=== PATIENT | male | born 1985 | race Hispanic/Latino ===

== ENCOUNTER 2023-05-14 17:44 | Emergency (ER) | payer OTHER ==
[~2023-05-14] VITALS: Ht 170.2 cm; Wt 113.4 kg
[2023-05-14 18:16] LABS: BASOPHILS % (AUTO) 0.3 % (0.0-5.0); EOSINOPHILS % (AUTO) 0.8 % (0.0-8.0); HEMATOCRIT 46.6 % (42-54); LYMPHOCYTES % (AUTO) 15.8 % (21.0-51.0); MEAN CORPUSCULAR HEMOGLOBIN 30.5 pg (27.0-33.0); MEAN CORPUSCULAR HGB CONC 34.3 g/dL (32.0-36.0); MEAN CORPUSCULAR VOLUME 88.9 fL (79-99); MONOCYTES % (AUTO) 6.3 % (3.0-13.0); NEUTROPHILS % (AUTO) 76.5 % (40.0-77.0); PLATELET COUNT (AUTO) 331 K/uL (130-400); RED BLOOD CELL COUNT(AUTO) 5.24 MIL/uL (4.50-6.20)
[2023-05-14 18:28] LABS: POTASSIUM 3.7 mmol/L (3.5-5.1)
[2023-05-14 18:38] LABS: ALBUMIN 4.3 g/dL (3.5-5.0); TOTAL PROTEIN, SERUM 8.2 g/dL (6.0-8.3)
[2023-05-14 19:11] LABS: B-TYPE NATRIURETIC PEPTIDE < 5 pg/mL (0-100)
[2023-05-14] MEDS ORDERED: NIFEDIPINE ER 30 MG TAB PO SCH (20:00)
[2023-05-14] MEDS ORDERED: 0.9%NACL 1000ML 1,000 ML IV ONE (20:00)
[2023-05-14] MEDS ORDERED: HYDRALAZINE 20MG/ML VIAL IV ONE (21:00)
[2023-05-14 21:46] VITALS: BP 157/86
[2023-05-14] MEDS ORDERED: LISI10TA24 PO (21:46)
== END 2023-05-14 22:02 | disposition home or self-care (01) ==
LOC: EDH 17:44
DX: I10 Essential (primary) hypertension (principal); J02.9 Acute pharyngitis, unspecified
CPT/HCPCS: 99284; 96374; 96361; 84484; 80053; 83880; 85025; 36415; 93005; J7030; J0360

== ENCOUNTER 2023-05-20 20:39 | Emergency (ER) | payer OTHER ==
[~2023-05-20] VITALS: Ht 172.7 cm; Wt 116.1 kg
[~2023-05-20 20:39] MED LIST: LISI10TA24 PO
[2023-05-20] MEDS ORDERED: 0.9%NACL 1000ML 1,000 ML IV ONE (21:47)
[2023-05-20] MEDS ORDERED: 0.9%NACL 1000ML 1,000 ML IV SCH (22:00)
[2023-05-20 22:09] LABS: BASOPHILS % (AUTO) 0.6 % (0.0-5.0); EOSINOPHILS % (AUTO) 1.6 % (0.0-8.0); HEMATOCRIT 43.1 % (42-54); LYMPHOCYTES % (AUTO) 26.2 % (21.0-51.0); MEAN CORPUSCULAR HEMOGLOBIN 30.9 pg (27.0-33.0); MEAN CORPUSCULAR HGB CONC 33.6 g/dL (32.0-36.0); MEAN CORPUSCULAR VOLUME 91.9 fL (79-99); MONOCYTES % (AUTO) 8.7 % (3.0-13.0); NEUTROPHILS % (AUTO) 62.6 % (40.0-77.0); PLATELET COUNT (AUTO) 329 K/uL (130-400); RED BLOOD CELL COUNT(AUTO) 4.69 MIL/uL (4.50-6.20); RED CELL DISTRIBUTION WIDTH 13.2 % (11.0-15.5); WHITE BLOOD COUNT (AUTO) 9.7 K/uL (4.8-10.8)
[2023-05-20 22:23] LABS: CREATININE 0.8 mg/dL (0.5-1.5); POTASSIUM 3.9 mmol/L (3.5-5.1)
[2023-05-20 22:28] LABS: ALBUMIN 3.5 g/dL (3.5-5.0); TOTAL PROTEIN, SERUM 7.1 g/dL (6.0-8.3)
[2023-05-20] MEDS ORDERED: DEXAMETHASONE SOD PHOSPHATE 4 MG/ML 1ML VIAL IVP ONE (22:30)
[2023-05-20] MEDS ORDERED: FAMOTIDINE 20MG VIAL IV ONE (22:30)
[2023-05-20] MEDS ORDERED: METOCLOPRAMIDE 10 MG/2 ML VIAL IVP ONE (22:30)
[2023-05-20] MEDS ORDERED: KETOROLAC 30MG VIAL (30MG/ML) IVP ONE (22:30)
[2023-05-20] MEDS ORDERED: MORPHINE 4 MG SYG IVP ONE (22:30)
[2023-05-21] MEDS ORDERED: METO-296 PO (00:08)
[2023-05-21] MEDS ORDERED: SUMA25TA25 PO (00:08)
[2023-05-21] MEDS ORDERED: HYDRALAZINE 20MG/ML VIAL IV ONE (00:30)
[2023-05-21 01:18] VITALS: BP 138/74
== END 2023-05-21 01:27 | disposition home or self-care (01) ==
LOC: EDH 20:39
DX: G43.909 Migraine, unspecified, not intractable, without status migrainosus (principal); I16.0 Hypertensive urgency
CPT/HCPCS: 99285; 96374; 96375; 70450; 71045; 96361; 84484; 80053; 85025; 36415; 93005; J1100; J3490; J7030; J2270; J1885; J2765

== ENCOUNTER 2023-12-02 19:57 | Emergency (ER) | payer OTHER ==
[~2023-12-02] VITALS: Ht 172.7 cm; Wt 120.7 kg
[~2023-12-02 19:57] MED LIST changes: +METO-296 PO; +SUMA25TA25 PO
[2023-12-02] MEDS ORDERED: IBUPROFEN 800 MG TAB PO ONE (23:00)
[2023-12-02] MEDS ORDERED: IBUP-2077 PO (23:28)
[2023-12-02 23:45] VITALS: BP 137/80; PULSE 80; RESP 16; O2SAT 100
== END 2023-12-02 23:52 | disposition home or self-care (01) ==
LOC: EDH 19:57
DX: S80.01XA Contusion of right knee, initial encounter (principal); I10 Essential (primary) hypertension; Z79.899 Other long term (current) drug therapy; Z98.890 Other specified postprocedural states; W18.39XA Other fall on same level, initial encounter; Y93.02 Activity, running; Y92.89 Other specified places as the place of occurrence of the external cause; Y99.8 Other external cause status
CPT/HCPCS: 73562